=== PATIENT | male | born 1940 | race Caucasian/White ===

== ENCOUNTER 2023-01-23 09:57 | Outpatient (CLI) | payer MEDICARE, BC | END 2023-01-23 09:58 | disposition home or self-care (01) | LOC: CSHCT 09:57 | PROVIDERS: ATTEND Orthopaedic Surgery Orthopaedic Surgery of the Spine | DX: M96.1 Postlaminectomy syndrome, not elsewhere classified (principal); M47.816 Spondylosis without myelopathy or radiculopathy, lumbar region; Z98.890 Other specified postprocedural states | CPT/HCPCS: 72131 ==